=== PATIENT | male | born 1990 | race Two or more races ===

== ENCOUNTER 2018-02-25 13:14 | Emergency (ER) | payer SELFPAY ==
[~2018-02-25] VITALS: Ht 180.3 cm; Wt 99.8 kg
[2018-02-25 13:22] VITALS: BP 125/63
== END 2018-02-25 15:40 | disposition home or self-care (01) ==
LOC: ER 13:14
DX: S39.012A Strain of muscle, fascia and tendon of lower back, initial encounter (principal); N39.0 Urinary tract infection, site not specified; X50.1XXA Overexertion from prolonged static or awkward postures, initial encounter; Y93.89 Activity, other specified; Y99.8 Other external cause status; Y92.89 Other specified places as the place of occurrence of the external cause
CPT/HCPCS: 72100

== ENCOUNTER 2023-08-21 19:59 | Emergency (ER) | payer BC, OTHER ==
[~2023-08-21] VITALS: Ht 180.3 cm; Wt 104.5 kg
[2023-08-21 20:52] VITALS: BP 140/86; PULSE 88; RESP 18; TEMP 98.4
[2023-08-22 00:48] VITALS: O2SAT 94
== END 2023-08-22 01:07 | disposition home or self-care (01) ==
LOC: ER 19:59
DX: S61.216A Laceration without foreign body of right little finger without damage to nail, initial encounter (principal); W25.XXXA Contact with sharp glass, initial encounter; Y93.89 Activity, other specified; Y92.89 Other specified places as the place of occurrence of the external cause; Y99.8 Other external cause status
CPT/HCPCS: 12001; 73140